=== PATIENT | female | born 1975 | race Caucasian/White ===

== ENCOUNTER 2025-04-03 09:20 | Outpatient (CLI) | payer BC, SELFPAY | END 2025-04-03 09:21 | disposition home or self-care (01) | LOC: NFLDREF 04-05 14:44 | PROVIDERS: Visit Provider Physician Assistant | DX: R35.0 Frequency of micturition (principal); N39.0 Urinary tract infection, site not specified; R30.0 Dysuria | CPT/HCPCS: 87086 ==